=== PATIENT | male | born 1995 | race American Indian/Alaskan Native ===

== ENCOUNTER 2016-12-03 12:24 | Emergency (ER) | payer OTHER ==
[2016-12-03 12:36] VITALS: BP 126/91
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
== END 2016-12-03 15:35 | disposition home or self-care (01) ==
LOC: ED 12:24
DX: S16.1XXA Strain of muscle, fascia and tendon at neck level, initial encounter (principal); F17.200 Nicotine dependence, unspecified, uncomplicated; V89.2XXA Person injured in unspecified motor-vehicle accident, traffic, initial encounter; W22.19XA Striking against or struck by other automobile airbag, initial encounter; Y93.89 Activity, other specified; Y99.8 Other external cause status; Y92.488 Other paved roadways as the place of occurrence of the external cause
CPT/HCPCS: 72125

== ENCOUNTER 2019-06-28 14:05 | Emergency (ER) | payer OTHER, MEDICAID ==
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
[2019-06-28 19:23] VITALS: BP 117/81
[2019-06-28] MEDS ORDERED: CYCLOBENZAPRINE 10 MG TAB PO ONE (19:33)
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
== END 2019-06-28 20:12 | disposition home or self-care (01) ==
LOC: ED 14:05
DX: S39.012A Strain of muscle, fascia and tendon of lower back, initial encounter (principal); M25.551 Pain in right hip; F17.200 Nicotine dependence, unspecified, uncomplicated; V49.59XA Passenger injured in collision with other motor vehicles in traffic accident, initial encounter; Y93.89 Activity, other specified; Y92.488 Other paved roadways as the place of occurrence of the external cause; Y99.8 Other external cause status
CPT/HCPCS: 99283

== ENCOUNTER 2019-08-28 12:24 | Emergency (ER) | payer OTHER, MEDICAID ==
[2019-08-28 13:42] VITALS: BP 119/70
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
[2019-08-28] MEDS ORDERED: IBUPROFEN 600 MG TAB PO ONE ×2 (17:33→17:34)
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
[2019-08-28] MEDS ORDERED: KETOROLAC 30 MG/1 ML INJ IM ONE (19:26)
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
== END 2019-08-28 20:10 | disposition home or self-care (01) ==
LOC: ED 12:24
DX: S16.1XXA Strain of muscle, fascia and tendon at neck level, initial encounter (principal); S46.912A Strain of unspecified muscle, fascia and tendon at shoulder and upper arm level, left arm, initial encounter; F17.200 Nicotine dependence, unspecified, uncomplicated; F12.10 Cannabis abuse, uncomplicated; Z79.899 Other long term (current) drug therapy; V89.2XXA Person injured in unspecified motor-vehicle accident, traffic, initial encounter; Y93.89 Activity, other specified; Y92.410 Unspecified street and highway as the place of occurrence of the external cause; Y99.8 Other external cause status
CPT/HCPCS: 72040; 73030; 99284; J1885